=== PATIENT | female | born 1970 | race Caucasian/White ===

== ENCOUNTER 2019-06-17 22:24 | Emergency (ER) | payer OTHER ==
[~2019-06-17] VITALS: Ht 172.7 cm; Wt 99.8 kg
[2019-06-17] MEDS ORDERED: NEURONTIN 300300 M1 PO (22:36)
[2019-06-17] MEDS ORDERED: ANASTROZOLE1 MG PO (22:36)
[2019-06-17] MEDS ORDERED: LISINOPRIL10 MG PO (22:36)
[2019-06-17] MEDS ORDERED: ZOLADEX3.6 MG/1 S SUBQ (22:37)
[2019-06-18] MEDS ORDERED: NORFLEX100 MG PO (00:16)
[2019-06-18] MEDS ORDERED: HYDROCODON-ACE1 EAC7 PO (00:16)
[2019-06-18 00:40] VITALS: BP 126/77
== END 2019-06-18 00:40 | disposition home or self-care (01) ==
LOC: M.ERS 22:24
DX: S60.221A Contusion of right hand, initial encounter (principal); M25.552 Pain in left hip; M25.512 Pain in left shoulder; I10 Essential (primary) hypertension; Z85.3 Personal history of malignant neoplasm of breast; Z98.890 Other specified postprocedural states; Z90.49 Acquired absence of other specified parts of digestive tract; Z90.710 Acquired absence of both cervix and uterus; W10.8XXA Fall (on) (from) other stairs and steps, initial encounter; Y93.89 Activity, other specified; Y92.89 Other specified places as the place of occurrence of the external cause; Y99.8 Other external cause status

== ENCOUNTER 2019-08-29 02:40 | Emergency (ER) | payer OTHER ==
[~2019-08-29] VITALS: Ht 172.7 cm; Wt 102.1 kg
[~2019-08-29 02:40] MED LIST: ANASTROZOLE1 MG PO; HYDROCODON-ACE1 EAC7 PO; LISINOPRIL10 MG PO; NEURONTIN 300300 M1 PO; NORFLEX100 MG PO; ZOLADEX3.6 MG/1 S SUBQ
[2019-08-29 03:17] LABS: URINE BILIRUBIN NEGATIVE (Negative); URINE BLOOD 1+ (Negative); URINE CLARITY CLEAR; URINE COLOR YELLOW; URINE GLUCOSE-RANDOM NEGATIVE (Negative); URINE KETONES NEGATIVE (Negative); URINE LEUKOCYTES-REFLEX NEGATIVE (Negative); URINE NITRITE-REFLEX NEGATIVE (Negative); URINE PROTEIN NEGATIVE (Negative); URINE SPECIFIC GRAVITY >= 1.030 (1.005-1.030); URINE UROBILINOGEN 0.2 E.U./dl (0.2-1.0)
[2019-08-29 03:32] LABS: ABSOLUTE EOSINOPHILS 0.1 thou/uL (0.0-0.7); ABSOLUTE LYMPHOCYTES 2.2 thou/uL (0.8-5.3); ABSOLUTE MONOCYTES 0.4 thou/uL (0.0-1.2); ABSOLUTE NEUTROPHILS 4.8 thou/uL (1.6-8.1); BASOPHILS 0.6 %; EOSINOPHILS 1.1 %; HEMATOCRIT 40.9 % (37.0-47.0); HEMOGLOBIN 14.4 gm/dL (12.0-15.0); LYMPHOCYTES 29.5 %; MCH 30.8 pg (26.0-34.0); MCHC 35.2 g/dL (28.0-37.0); MCV 87.4 fL (80.0-100.0); MONOCYTES 5.8 %; NUCLEATED RBCS 0 /100WBC; PLATELET COUNT* 274 thou/uL (150-400); RBC 4.68 mil/uL (4.20-5.00); RDW-CV 14.3 % (10.5-14.5); WBC 7.6 thou/uL (4.0-11.0)
[2019-08-29 03:39] LABS: CALCIUM 8.5 mg/dL (8.5-10.1); CREATININE 0.8 mg/dL (0.6-1.3)
[2019-08-29 03:46] LABS: ALBUMIN 3.8 g/dL (3.4-5.0); POTASSIUM 2.9 mmol/L (3.5-5.1); TOTAL BILIRUBIN 1.1 mg/dL (<0.1-1.0); TOTAL PROTEIN 7.2 g/dL (6.4-8.2)
[2019-08-29 04:05] LABS: CASTS None Seen /LPF (None Seen); SQUAMOUS >10 Many /LPF (0-3)
[2019-08-29 04:06] LABS: BACTERIA-REFLEX 1-9 Few /HPF (None Seen); CRYSTALS None Seen /LPF (None Seen); URINE RBC 3-10 Few /HPF (0-2); URINE WBC-REFLEX 0-5 Rare /HPF (0-5)
[2019-08-29] MEDS ORDERED: CIPRO500 M1 PO (05:33)
[2019-08-29] MEDS ORDERED: FLAGYL500 M1 PO (05:33)
[2019-08-29] MEDS ORDERED: HYDROCODON-ACE1 EAC7 PO (05:33)
[2019-08-29] MEDS ORDERED: MEDROLDOSEPACK PO (05:33)
[2019-08-29 05:46] VITALS: BP 142/72
== END 2019-08-29 05:46 | disposition home or self-care (01) ==
LOC: M.ERS 02:40
PROVIDERS: Emergency Medicine
DX: K52.9 Noninfective gastroenteritis and colitis, unspecified (principal); I10 Essential (primary) hypertension; K21.9 Gastro-esophageal reflux disease without esophagitis; Z90.49 Acquired absence of other specified parts of digestive tract; Z90.710 Acquired absence of both cervix and uterus; Z90.89 Acquired absence of other organs; Z85.3 Personal history of malignant neoplasm of breast